=== PATIENT | female | born 2000 | race Caucasian/White ===

== ENCOUNTER → 2022-09-19 | Outpatient (CLI) | payer OTHER, MEDICAID, SELFPAY ==
[2022-09-19 16:33] LABS: Absolute Lymphocyte Count 2.06 X10^3/uL (0.83-4.51); Absolute Neutrophil Count 5.4 X10^3/uL (2.0-7.7); Basophil# 0.03 X10^3/uL; Basophil% 0.4 % (0-1); Eosinophil# 0.11 X10^3/uL; Eosinophils% 1.4 % (0-5); Hematocrit 37.4 % (37-47); Hemoglobin 12.1 g/dL (12.0-15.0); Lymphocyte # 2.06 X10^3/ul (0.83-4.51); Lymphocyte % 25.5 % (19-41); Mean Corp Hgb Conc 32.4 g/dL (32-36); Mean Corpuscular Hgb 27.7 pg (27.0-32.0); Mean Corpuscular Volume 85.6 fL (81-99); Mean Platelet Vol. 11.2 fl (6.2-12.0); Monocyte# 0.49 X10^3/uL; Monocyte% 6.1 % (0-10); NRBC Flagged by Analyzer 0 % (0-5); Neutrophil # 5.38 X10^3/uL (2.7-7.7); Neutrophil % 66.4 % (47-70); Platelet Count 293 K/mm3 (150-450); RBC Distribution Width CV 12.4 % (11.6-14.6); RBC Distribution Width SD 38.6 fl (35.1-43.9); Red Blood Count 4.37 M/mm3 (4.2-5.4); White Blood Count 8.1 K/mm3 (4.4-11.0)
[2022-09-19 17:29] LABS: hCG Titer Quant., Serum < 1 mIU/mL (1-3)
[2022-09-19 22:56] LABS: Estradiol 49.8 pg/mL; Follicle Stimulating Hormone 4.1 mIU/mL; Prolactin 16.7 ng/mL; Thyroid Stim Hormone (TSH) 2.01 uIU/mL (0.358-3.74)
[2022-09-25 12:09] LABS: 17-Hydroxyprogesterone 55 ng/dL (.)
== END | disposition home or self-care (01) ==
LOC: WOBLAB 15:35
PROVIDERS: Visit Provider Nurse Practitioner Women's Health
DX: N91.2 Amenorrhea, unspecified (principal)
CPT/HCPCS: 36415; 82627; 82670; 83001; 83002; 83036; 83498; 84146; 84402; 84403; 84439; 84443; 84702; 85025; 82626

== ENCOUNTER → 2022-10-09 | Outpatient (CLI) | payer OTHER, MEDICAID, SELFPAY ==
[2022-10-15 09:09] LABS: Testosterone, % Free 1.89 % (0.50-2.80); Testosterone, Free 1.66 ng/dL (0.10-0.85); Testosterone, Total 88 ng/dL (13-71)
== END | disposition home or self-care (01) ==
LOC: WOBLAB 08:48
PROVIDERS: Visit Provider Nurse Practitioner Women's Health
DX: N91.2 Amenorrhea, unspecified (principal)
CPT/HCPCS: 84402; 84403